=== PATIENT | male | born 1955 | race Caucasian/White ===

== ENCOUNTER 2019-02-01 11:07 | Inpatient (IN) ==
[2019-02-01] MEDS ORDERED: *HR* LORazepam 0.5 MG TABLET PO PRN (11:36)
[2019-02-01] MEDS ORDERED: Acetaminophen 325 MG TABLET PO PRN (11:39)
[2019-02-01] MEDS ORDERED: *HR* Morphine Soln 10 MG/5 ML UDC PO PRN (11:44)
[2019-02-01] MEDS: Baclofen 10 MG TABLET PO SCH ×3 (13:40→20:43)
[2019-02-01] MEDS ORDERED: Gabapentin 100 MG CAPSULE PO SCH (21:00)
[2019-02-02] MEDS: Levothyroxine 25 MCG TABLET PO SCH (05:50)
[2019-02-02] MEDS: Baclofen 10 MG TABLET PO SCH ×4 (09:19→21:26)
[2019-02-02] MEDS: Aspirin 81 MG TAB.CHEW PO SCH (09:19)
[2019-02-02] MEDS: Cholecalciferol (D-3) 1,000 UNIT TABLET PO SCH (09:20)
[2019-02-03] MEDS: Levothyroxine 25 MCG TABLET PO SCH (05:57)
[2019-02-03] MEDS: Baclofen 10 MG TABLET PO SCH ×4 (07:26→20:40)
[2019-02-03] MEDS: Cholecalciferol (D-3) 1,000 UNIT TABLET PO SCH (07:26)
[2019-02-03] MEDS: Aspirin 81 MG TAB.CHEW PO SCH (07:27)
[2019-02-04] MEDS: Levothyroxine 25 MCG TABLET PO SCH (06:34)
[2019-02-04] MEDS: Aspirin 81 MG TAB.CHEW PO SCH (09:11)
[2019-02-04] MEDS: Baclofen 10 MG TABLET PO SCH ×4 (09:11→20:44)
[2019-02-04] MEDS: Cholecalciferol (D-3) 1,000 UNIT TABLET PO SCH (09:11)
[2019-02-05] MEDS: Levothyroxine 25 MCG TABLET PO SCH (06:43)
[2019-02-05] MEDS: Cholecalciferol (D-3) 1,000 UNIT TABLET PO SCH (08:07)
[2019-02-05] MEDS: Aspirin 81 MG TAB.CHEW PO SCH (08:08)
[2019-02-05] MEDS: Baclofen 10 MG TABLET PO SCH ×4 (08:08→21:00)
[2019-02-06] MEDS: Levothyroxine 25 MCG TABLET PO SCH (06:09)
[2019-02-06 06:42] VITALS: BP 120/74
[2019-02-06] MEDS: Aspirin 81 MG TAB.CHEW PO SCH (07:48)
[2019-02-06] MEDS: Baclofen 10 MG TABLET PO SCH (07:49)
[2019-02-06] MEDS: Cholecalciferol (D-3) 1,000 UNIT TABLET PO SCH (10:10)
== END 2019-02-06 10:35 | disposition home health service (06) | DRG 951 ==
LOC: INPPIK 11:07
PROVIDERS: ADMIT Internal Medicine; ATTEND Internal Medicine